=== PATIENT | female | born 1955 | race Caucasian/White ===

== ENCOUNTER → 2016-07-05 | Outpatient (CLI) | payer OTHER, MEDICARE ==
[~2016-07-05] MED LIST: COL250 PO; OXYCODONE HYDRO10 M1; PER5 PO
== END | disposition home or self-care (01) ==
LOC: RD 09:43
DX: S62.102D Fracture of unspecified carpal bone, left wrist, subsequent encounter for fracture with routine healing (principal); X58.XXXD Exposure to other specified factors, subsequent encounter